=== PATIENT | female | born 1965 | race Two or more races ===

== ENCOUNTER → 2023-03-10 | Emergency (ER) | payer OTHER ==
[~2023-03-10] VITALS: Ht 172.7 cm; Wt 77.1 kg
[~2023-03-10] MED LIST: METFORMIN HCL500 M3 PO; OMEPRAZOLE MAGN20 MG PO
== END | disposition home or self-care (01) ==
LOC: ER 19:07
DX: J06.9 Acute upper respiratory infection, unspecified (principal); Z20.822 Contact with and (suspected) exposure to COVID-19; E11.9 Type 2 diabetes mellitus without complications; Z79.84 Long term (current) use of oral hypoglycemic drugs